=== PATIENT | female | born 1975 | race Caucasian/White ===

== ENCOUNTER → 2021-09-25 | Outpatient (CLI) | payer BC ==
[~2021-09-25] MED LIST: CNC1KV IJ; DIAZ2TAB2 PO; DIAZ5TAB49 PO; ERGO50006 PO; MAGN400T39 PO; MELO15TA14 PO; MELO15TA39 PO; METF-397 PO; METF-865 PO; NAPR-1070 PO; NAPR-429 PO; NAPR-915 PO; ONDA8TAB9 PO; PHEN37.58 PO; SPIR25TA5 PO; TRM50T PO; VITAMIN B12 INJ IM
--- NOTE | 2021-09-25 13:43 | Diagnostic Imaging Report ---
PROCEDURE: CT urinary tract, rule out kidney stone. TECHNIQUE: Multiple contiguous axial images were obtained through the abdomen and pelvis without the use of intravenous contrast. Auto Exposure Controls were utilized during the CT exam to meet ALARA standards for radiation dose reduction. INDICATION: Left flank pain and microhematuria Noncontrast CT imaging of the abdomen and pelvis was performed. No previous study is available at this time for comparison. Unenhanced images of liver and spleen reveal no focal abnormality. There is no central gallbladder, pancreatic or adrenal gland lesion. Tiny nonobstructing stones are seen in the upper poles of the kidneys with the largest on the left reaching 0.3 cm in size. There is also mild left hydronephrosis and hydroureter to the level of an approximately 0.4 cm calculus in the distal left ureter just above the ureterovesical junction. Unopacified urinary bladder is otherwise unremarkable. Note is made of calcifications along the bladder base, anteriorly. Urethral diverticular not excluded. Otherwise, there is no evidence of free fluid in the abdomen or pelvis. No pathologically enlarged adenopathy is seen. There is mild L5-S1 degenerative disc disease with lower lumbar degenerative facet arthropathy present. IMPRESSION: Bilateral nonobstructing nephrolithiasis with an at least partially obstructing 0.4 cm distal left ureteric stone. Dictated by: Dictated on workstation # [id number]
== END ==
LOC: RAD 13:14
PROVIDERS: ATTEND Nurse Practitioner Family
DX: N20.2 Calculus of kidney with calculus of ureter (principal)
CPT/HCPCS: 74176